=== PATIENT | female | born 1965 | race Caucasian/White ===

== ENCOUNTER 2021-09-18 08:06 | Emergency (ER) | payer OTHER, SELFPAY ==
[2021-09-18 08:11] VITALS: BP 182/86; PULSE 100; RESP 16; TEMP 37.3; O2SAT 100
[2021-09-18 08:17] VITALS: BP 182/86; PULSE 100; RESP 16; TEMP 37.3; O2SAT 100
--- NOTE | 2021-09-18 08:17 | ED.EYEPROB ---
HPI - Eye Problem General Chief complaint: Eye Problems Stated complaint: left eye Time Seen by Provider: 09/18/21 08:07 Source: patient and RN notes reviewed History of Present Illness HPI Narrative: Patient is a 56-year-old female who presents the urgent care with complaints of left lower eyelid swelling, pain, redness. Patient states that she noticed the itch yesterday and woke up with the increased welling today. Patient denies of any trauma or injury to the eye. Denies of any changes in vision. Patient has taken Tylenol but otherwise is not used anything to the counter for her symptoms. No other acute complaints. No acute distress noted. Patient aware of the plan of care. Some parts of this dictation were generated by voice recognition software and may contain typographical and/or grammatical inaccuracies. Related Data Allergies Allergy/AdvReac Type Severity Reaction Status Date / Time No Known Allergies Allergy Verified 09/18/21 08:17 Review of Systems Review of Systems: CONSTITUTIONAL: Denies fever, chills, or sweats. EYES: Reports of left lower eyelid redness, swelling, drainage, itchiness ENT: Denies rhinorrhea, congestion, sore throat, or otalgia. CARDIOVASCULAR: Denies chest pain, palpitations, or edema. RESPIRATORY: Denies cough or dyspnea. GASTROINTESTINAL: Denies abdominal pain, nausea, vomiting, or diarrhea. GENITOURINARY: Denies dysuria or hematuria. SKIN: Denies rash or itching. MUSCULOSKELETAL: Denies back pain, joint pain, or myalgia. NEUROLOGIC: Denies headache, numbness, or weakness. All other systems reviewed are negative, except as documented in HPI. PMFSH Comments At the time of my signature, I reviewed and agree with the nursing past medical, surgical, social, and family history. There is no relevant family history pertinent to the patient complaint. Exam Narrative: GENERAL: This is a well-nourished, well-developed patient, in no apparent distress. HEAD: normocephalic, atraumatic. EYES: PERRL. Right sclera clear/white. Left lower eyelid with mild edema, mild erythema, scant clear drainage, mild tenderness, with multiple fluid-filled vesicular lesions consistent with impetigo EARS: External ears normal NOSE: External nose normal with no obvious nasal discharge, nares without redness, no rhinorrhea. THROAT: Mucous membranes moist, posterior pharynx clear. NECK: Neck supple CARDIOVASCULAR: Regular rate and rhythm without murmurs, gallops, or rubs. RESPIRATORY: Clear to auscultation. Breath sounds equal bilaterally. No wheezes, rales, or rhonchi. SKIN: warm, intact with no suspicious lesions or rash, good texture and turgor. NEURO: awake, alert, and oriented to person, place and time. There were no obvious focal neurologic abnormalities. EXTREMITIES: No clubbing, cyanosis, or edema. Course Course Level of Care: Express Care Visit Vital Signs Vital signs: Vital Signs Temperature 99.2 F 09/18/21 08:11 Pulse Rate 100 09/18/21 08:11 Respiratory Rate 16 09/18/21 08:11 Blood Pressure 182/86 H 09/18/21 08:11 Pulse Oximetry 100 09/18/21 08:11 Temperature 99.2 F 09/18/21 08:17 Pulse Rate 100 09/18/21 08:17 Respiratory Rate 16 09/18/21 08:17 Blood Pressure 182/86 H 09/18/21 08:17 Pulse Oximetry 100 09/18/21 08:17 Reviewed-patient is informed that they may have pre-hypertension or hypertension based on a blood pressure reading in the department. I recommend the patient call the primary care provider listed on their discharge instructions or a physician of their choice this week to arrange follow-up for further evaluation of possible pre-hypertension or hypertension. MDM - Eye Problem MDM Narrative Medical decision making narrative: Advised patient to complete the oral antibiotic regimen as prescribed. The antibiotic will treat both impetigo and orbital cellulitis. Be sure to eat and drink with the medication. Use the erythromycin gel to the lower left eyelid as dire
== END 2021-09-18 08:32 | disposition home or self-care (01) ==
PROVIDERS: Emergency Provider Nurse Practitioner Family; PCP Internal Medicine
DX: L01.00 Impetigo, unspecified (principal)
CPT/HCPCS: 99213; G0463

== ENCOUNTER 2021-12-07 11:30 | Emergency (ER) | payer OTHER, SELFPAY ==
--- NOTE | ~2021-12-07 | XR_ITS ---
EXAMINATION: XR toe 4th LT min 2V EXAM DATE: 12/07/2021 11:51 INDICATION: Stubbed 4th toe, pain. TECHNIQUE: Left 4th toe frontal, lateral and oblique projections obtained and reviewed. There is n o prior study for comparison. FINDINGS: Acute closed posttraumatic oblique fracture through the shaft of the left 4th proximal pha lanx with mild angulation. There is overlying soft tissue swelling. IMPRESSION: Left 4th proximal phalangeal shaft fracture, angulation. Reviewed, dictated and finalized at location B.
[2021-12-07 11:35] VITALS: BP 165/82; PULSE 90; RESP 16; TEMP 37.3; O2SAT 98
--- NOTE | 2021-12-07 11:47 | ED.LOWEXIN ---
HPI - Extremity Injury (Lower) General Chief Complaint: Extremity Injury, Lower Stated Complaint: left foot toe injury Time Seen by Provider: 12/07/21 11:48 Source: patient and RN notes reviewed Mode of arrival: ambulatory Limitations: no limitations History of Present Illness HPI Narrative: 56-year-old female presents with concern for injury to the fourth digit of the left foot. This morning she hit the toe on a metal wheel of the bed frame. She reports deformity. She denies open skin, rash, redness, warmth. She reports decreased range of motion. She denies decrease sensation. complaint: foot injury Related Data Home Medications Medication Instructions Recorded Confirmed No Home Medications 12/07/21 12/07/21 Allergies Allergy/AdvReac Type Severity Reaction Status Date / Time No Known Allergies Allergy Verified 12/07/21 11:44 Review of Systems Review of Systems: CONSTITUTIONAL: Denies malaise, chills, sweats, or fever. SKIN: Denies rash or itching, open skin, laceration, abrasion, redness, warmth, swelling. MUSCULOSKELETAL: Reports left fourth toe pain and deformity NEUROLOGIC: Denies numbness, weakness All systems reviewed & are unremarkable except as noted in HPI and below PMFSH Comments At time of signature, agree with nursing past medical, surgical, social and family history. There is no relevant family history pertinent to the presenting complaint Exam Narrative: GENERAL: Well-appearing, well-nourished, and in no acute distress. HEAD: Normocephalic, atraumatic. EYES: PERRLA, conjunctivae clear NECK: Supple. CHEST: Speaks in full sentences. No respiratory distress. HEART: Regular rate and rhythm. Normal and equal peripheral pulses. EXTREMITIES: Fourth digit of left foot has normal sensation, limited range of motion. No edema or ecchymosis. Normal sensation with sensitivity to light touch and pain. General digit tenderness, digit deformity. No open wounds, no skin tenting, no devitalized tissue or atrophy, no trophic changes, alignment normal, nearby joints and structures intact. Distal pulses palpable and equal bilaterally, skin warm, dry, pink. Capillary refill less than 3 seconds. SKIN: Warm, dry, no rash. NEURO: Alert and oriented x3. PSYCH: Normal mood and affect Course Course Emergency Course: Patient is aware of diagnosis, understands and agrees to treatment plan. Anticipatory guidance given. Patient agrees to follow-up as directed and is aware of reasons to seek care at the emergency department. Portions of this record may have been created with voice recognition software Level of Care: Express Care Visit Vital Signs Vital signs: Vital Signs Temperature 99.2 F 12/07/21 11:35 Pulse Rate 90 12/07/21 11:35 Respiratory Rate 16 12/07/21 11:35 Blood Pressure 165/82 H 12/07/21 11:35 Pulse Oximetry 98 12/07/21 11:35 Temperature 99.2 F 12/07/21 11:35 Pulse Rate 90 12/07/21 11:35 Respiratory Rate 16 12/07/21 11:35 Blood Pressure 165/82 H 12/07/21 11:35 Pulse Oximetry 98 12/07/21 11:35 Reviewed. MDM - Extremity Injury (Lower) MDM Narrative Medical decision making narrative: Patients injury and pain is consistent with musculoskeletal etiology. No signs of neurological or vascular compromise on exam. Compartments and tissues are soft without signs of compartment syndrome. Pain is felt appropriate for further evaluation on an outpatient basis. Imaging Data My impression: Images reviewed, interpreted by radiologist, agree, see report. Radiologist's impression: EXAMINATION: XR toe 4th LT min 2V EXAM DATE: 12/07/2021 11:51 INDICATION: Stubbed 4th toe, pain. TECHNIQUE: Left 4th toe frontal, lateral and oblique projections obtained and reviewed. There is no prior study for comparison. FINDINGS: Acute closed posttraumatic oblique fracture through the shaft of the left 4th proximal phalanx with mild angulation. There is overlying soft tissue swelling. IMPRES
== END 2021-12-07 12:05 | disposition home or self-care (01) ==
PROVIDERS: Emergency Provider Nurse Practitioner; PCP Internal Medicine
DX: S92.512A Displaced fracture of proximal phalanx of left lesser toe(s), initial encounter for closed fracture (principal); W22.8XXA Striking against or struck by other objects, initial encounter
CPT/HCPCS: 73660; 99214; G0463

== ENCOUNTER 2021-12-12 01:23 | Day surgery (SDC) | payer OTHER, SELFPAY ==
[2021-12-08 14:49] VITALS: BMI 32.4
--- NOTE | 2021-12-08 14:56 | PC.NURSE ---
Report to the Outpatient Waiting Room, entrance under the green pavilion located off [facility], at time 1100 on date 12/12/21. OR Time: 1300. - You and your visitor will be asked a series of questions to screen for COVID 19 for your protection. - A mask is required within the hospital. One visitor will be allowed to accompany the patient into the hospital. Patients visitor will be instructed to remain with patient at all times or leave the building. We will allow the visitor to come back to the postoperative area when patient is ready. Preoperative COVID Testing Requirements: No COVID Test needed if: (proof is required; if not received patient will have Rapid Test prior to entry) - Patient has received COVID Vaccine at least 14 days prior to procedure date or - Patient has positive COVID test result within last 90 days of surgery date. COVID Test needed if above criteria is not met Patients may have clear liquids (water, carbonated beverages, clear teas, apple juice) until 3 hours prior to surgery with a maximum of 20 ounces. - No food from midnight until time of surgery Take the following medications with a SIP of water the morning of surgery: TYLENOL (IF NEEDED) Medications to discontinue per physician: N/A Date to take last dose: N/A Please no make-up, nail welsh, hairspray, perfume, deodorant, or body powder the day of surgery. No jewelry (including any body piercings) or valuables the day of surgery, leave them at home. Please take a shower or bath the night before, or the morning of, surgery with an antibacterial soap. Wear comfortable, loose fitting clothing. - Jewelry must be removed prior to entering the operating room. Rings and piercings that are not removed may be cut off. - The hospital will not accept responsibility for valuables. - Please leave all valuables, including medications, at home the day of surgery. If you are going home after surgery, a licensed class c driver must drive you home. - NO public transportation without another adult. - We recommend that an adult stay with you for 24 hours following discharge. - We also recommend that you do not drive, make important decision, drink alcoholic beverages, or take any drugs that were not prescribed by your health care provider for at least 24 hours after your discharge time. Follow any additional instructions given to you from your surgeon. Telephone instructions given to FEROZ FULTON and asked if any additional questions and then verbalized understanding. Patient advised to call surgeon office or pre surgery nurse liaison [phone] if any additional questions.
--- NOTE | ~2021-12-12 | XR_ITS ---
EXAMINATION: XR surgery orthopedic DATE: 12/12/2021 13:20 INDICATION: Reduction pinning of the left fourth toe TECHNIQUE: 3 fluoroscopic images of the left forefoot were obtained during procedure performed by Dr. Mcdonnell. Radiologist was not present for the imaging or procedure. The amount of fluoroscopy time used during this procedure was 0.2 minutes. COMPARISON: 12/07/2021 FINDINGS: Interval reduction to essentially anatomic alignment of a now indiscernible diaphyseal fracture of th e left fourth proximal phalanx. The fracture has been fixed with a percutaneous pin which extends act ually across the proximal, middle and distal phalanges of the fourth toe with the tip of the wire and subarticular bone at the base of the proximal phalanx. Joint spaces are normal. IMPRESSION: 1. Essentially anatomic alignment post reduction and percutaneous pin fixation of an extra articular fracture at the left fourth proximal phalanx. Reviewed, dictated and finalized at location A.
[2021-12-12] MEDS: LACTATED RINGERS 1,000 ML 30 ML IV CONT (11:27)
[2021-12-12] MEDS: ACETAMINOPHEN 500 MG TABLET 1000 MG PO (11:27)
[2021-12-12] MEDS: KETOROLAC 15 MG/ML VIAL (*BKC) IV PUSH (11:29)
[2021-12-12 11:37] VITALS: BP 153/79; PULSE 98; RESP 16; TEMP 37.2; O2SAT 99
--- NOTE | 2021-12-12 12:23 | WPDANESEPPF ---
Anes - Initial Pre Proc Eval Procedure: Operation Date: 12/12/21 13:00 Proposed Procedures p Reduction and Pinning Left Fourth Toe Fracture - Andres Mcdonnell MD Date/Time: 12/12/21 12:23 Surgeon: Andres Mcdonnell MD Pre Op Diagnosis: Lt Fourth Toe Proximal Phalanx Fx Patient Data Age: 56 Gender: F Height: 1.63 m Weight: 81.4 kg Last Vital Signs Temp 37.2 C 12/12/21 11:37 Pulse 98 12/12/21 11:37 Resp 16 12/12/21 11:37 BP 153/79 H 12/12/21 11:37 Pulse Ox 99 12/12/21 11:37 Allergies Allergy/AdvReac Type Severity Reaction Status Date / Time No Known Allergies Allergy Verified 12/12/21 11:01 Home Medications Medication Instructions Recorded Confirmed Type acetaminophen [Tylenol Ex Str 1,000 mg PO Q6H PRN 12/08/21 12/12/21 History Rapid Release] ibuprofen 400 mg PO Q6H PRN 12/08/21 12/12/21 History Patient hx anesthesia problems: none Family hx anesthesia problems: none Results Review: All pre-operative results and documents have been reviewed as part of the pre-operative evaluation. [facility] Past Medical History Medical History (Updated 12/08/21 @ 09:37 by Andres Mcdonnell MD) Fracture of phalanx of left great toe Surgical History Surgical History History of section Age 20 Family History Family History Father Diabetes mellitus Cerebrovascular accident Mother Hypertension Sibling Diabetes mellitus Social History Social History Smoking status: Never smoker Alcohol intake: never Substance use: never Substance use type: does not use Living arrangements: with family Additional occupation/education comments: [employer] Gender identity (if verbalized by the patient): Female Spiritual care concerns: No Anes - Eval Final PreProcedure Day of Procedure 12/12/21 12:23 Patient weight: obese Heart: regular rate and rhythm Lungs: clear to auscultation and normal air movement Airway: Mallampati scale class II Neurological: alert and oriented Last oral intake: >/= 8 hours ASA classification: II Emergent: no Anesthetic plan: proceed Anesthesia type and monitoring: general LMA and standard monitoring Results Review: All pre-operative results and documents have been reviewed as part of the pre-operative evaluation. Informed Consent: The patient's anesthetic plan and its attendant risks and benefits were discussed with the patient/family/POA. Questions were solicited and answers provided to the satisfaction of the patient/family/POA.
--- NOTE | 2021-12-12 12:31 | WPDHPUPDATE1 ---
History and Physical Update Update Date/Time: 12/12/21 12:31 History and Physical has been reviewed, including an updated exam of the patient. There are NO changes in the patient's condition. Risks, benefits, and alternatives have been discussed and questions answered. Patient agrees to proceed with procedure.
[2021-12-12] MEDS: ceFAZolin 2 GM/D5W 50 ML 2 GM/50 ML BAG IVPB (12:52)
[2021-12-12] MEDS: BUPIVACAINE HCL 0.5% PF 30 ML VIAL INFILTRATE (13:20)
[2021-12-12 13:27] VITALS: BP 154/75; PULSE 112; RESP 20; TEMP 36.4; O2SAT 99
--- NOTE | 2021-12-12 13:35 | P.OP_ITS ---
Procedure Note - Detailed Date of Procedure 12/12/21 Pre-op Diagnosis Lt Fourth Toe Proximal Phalanx Fx Post-op Diagnosis Same Procedure Performed Reduction and percutaneous pin stabilization left foot fourth digit proximal phalanx Surgeon Andres Mcdonnell MD Plant Safety Engineer Enriqueta Jones Anesthesia General Description of Procedure The patient was identified and proper site identified. She was taken to the operating room and transferred to the OR table placing her supine taking care to pad her torso and extremities. After general anesthetic induction and intubation a nonsterile tourniquet was placed high on the left thigh but was not used. Left lower extremity was prepped and draped in the usual sterile fashion. While assessing the great toe fluoroscopically was determined that by applying traction a good reduction could be carried out so while holding the toe reduced a 0.045 K-wire was then inserted through the tip of the toe across the distal middle phalanx stabilizing the proximal phalanx fracture in an anatomic position. Hardware placement was assessed fluoroscopically and noted to be satisfactory. The K-wire was cut short and capped with a El's ball. Several cc of 0.5% plain Marcaine was injected around the base of the toe as a ring block. Sterile dressing was applied. Patient was awakened, extubated taken to recovery area in stable condition. There were no known intraoperative complications. Estimated blood loss negligible. She received perioperative antibiotics. Estimated Blood Loss -1.0 Tourniquet Time 0 Drains No Packing No Pathology None sent Complications No immediate complications Condition Stable Disposition PACU
[2021-12-12 13:40] VITALS: BP 126/62; PULSE 100; RESP 23; O2SAT 100
[2021-12-12 13:55] VITALS: BP 127/71; PULSE 99; RESP 12; O2SAT 98
[2021-12-12 14:00] VITALS: BP 139/81; PULSE 100; RESP 12
[2021-12-12 14:30] VITALS: BP 141/86; PULSE 97; RESP 16
== END 2021-12-12 14:50 | disposition home or self-care (01) ==
PROVIDERS: PCP Internal Medicine; Visit Provider Orthopaedic Surgery
PROC: (CPT 26608; principal; 2021-12-12 13:00)
DX: S92.512A Displaced fracture of proximal phalanx of left lesser toe(s), initial encounter for closed fracture (principal); W22.09XA Striking against other stationary object, initial encounter; E66.9 Obesity, unspecified; Z68.30 Body mass index [BMI] 30.0-30.9, adult
CPT/HCPCS: 28525; A9270; C1713; J0690; J1100; J1885; J2250; J2405; J2704; J3010; J7120